=== PATIENT | female | born 1980 | race Caucasian/White ===

== ENCOUNTER 2016-06-24 09:29 | Emergency (ER) | payer BC ==
[2016-06-24 09:40] VITALS: BP 118/60
--- NOTE | 2016-06-24 09:48 | UC ---
Throat Pain/Nasal Doug HPI - HPI Summary HPI Summary: complaiont of bilateral ear pain that started approx 4 days ago mild sore throat and lymph nodes feels swollen mild nasal congestion mild headaches denies cough , fever currently breatsfeeding so only taking acetaminophen for pain with some relief - History of Current Complaint Chief Complaint: UCEar Stated Complaint: SORE THROAT AND EAR PAIN Hx Obtained From: Patient Hx Last Menstrual Period: - Allergies/Home Medications Allergies/Adverse Reactions: Allergies Allergy/AdvReac Type Severity Reaction Status Date / Time No Known Allergies Allergy Verified 01/31/16 09:13 PMH/Surg Hx/FS Hx/Imm Hx Previously Healthy: Yes - - Surgical History Surgical History: None - Family History Known Family History: Negative: Cardiac Disease, Hypertension, Diabetes - Social History Occupation: Employed Full-time Lives: With Family Alcohol Use: None Substance Use Type: None Smoking Status (MU): Never Smoked Tobacco - Immunization History Most Recent Influenza Vaccination: 03/27/15 Most Recent Tetanus Shot: 04/20/15 Most Recent Pneumonia Vaccination: none Review of Systems Constitutional: Negative Skin: Negative Eyes: Negative ENT: Sore Throat, Ear Ache Respiratory: Negative Cardiovascular: Negative Gastrointestinal: Negative Genitourinary: Negative Motor: Negative Neurovascular: Negative Musculoskeletal: Negative Neurological: Negative Psychological: Negative All Other Systems Reviewed And Are Negative: Yes Physical Exam Triage Information Reviewed: Yes Appearance: No Pain Distress, Well-Nourished Vital Signs: Initial Vital Signs Temp 98.0 F 06/24/16 09:37 Pulse 95 06/24/16 09:37 Resp 18 06/24/16 09:37 BP 118/60 06/24/16 09:37 Pulse Ox 100 06/24/16 09:37 Vital Signs Reviewed: Yes Eyes: Positive: Conjunctiva Clear ENT: Positive: Pharyngeal erythema, TM bulging. Negative: Nasal congestion, TM red Neck: Positive: No Lymphadenopathy Respiratory: Positive: Lungs clear, Normal breath sounds, No respiratory distress Cardiovascular: Positive: RRR, No Murmur, Pulses Normal Abdomen Description: Positive: Nontender, Soft Bowel Sounds: Positive: Present Musculoskeletal: Positive: No Edema Neurological: Positive: Alert Psychological Exam: Normal Skin Exam: Normal Throat Pain/Nasal Course/Dx - Course Course Of Treatment: exam completed. negative for strep throat. pt opts to use symptom management instead of flonase as she is - Differential Dx/Diagnosis Differential Diagnosis/HQI/PQRI: Pharyngitis, URI, Other - eustachion tube dysfuntion Provider Diagnoses: eustachion tube dysfuntion. pharyngitis Discharge - Discharge Plan Condition: Stable Disposition: HOME Patient Education Materials: Eustachian Tube Dysfunction (GEN), Pharyngitis (ED ) Referrals: Kylie Morse MD [Primary Care Provider] - Additional Instructions: Use nasal saline for irrigation of sinuses take acetaminophen for pain increase fluids and rest Please review your discharge instructions. If your symptoms do not improve please call your primary care provider or return to urgent care.
== END 2016-06-24 10:33 | disposition home or self-care (01) ==
LOC: UCEAST 09:29 → MERGE 09:29 → UCEAST 10:33
DX: H66.93 Otitis media, unspecified, bilateral (principal); J02.9 Acute pharyngitis, unspecified; R09.81 Nasal congestion; R51 Headache
CPT/HCPCS: 87651; 99211; G0463

== ENCOUNTER 2017-12-05 20:04 | Emergency (ER) | payer BC ==
[2017-12-05 20:14] VITALS: BP 115/69
--- NOTE | 2017-12-05 20:40 | UC ---
Ear Complaint HPI - HPI Summary HPI Summary: 5 DAYS OF RIGHT EAR PAIN AND PRESSURE. NO HEARING LOSS OR DRAINAGE FROM THE EAR. NO FEVER OR URI SYMPTOMS. REPORTS SHE BROUGHT AN OTC MOUTHGUARD BECAUSE SHE GRINDS HER TEETH AT NIGHT AND THAT THIS HAS WORN AN ULCER INTO THE BACK OF HER MOUTH. HAS BEEN HAVING SOME PAIN FROM THIS AREA AND WONDERS IF THAT IS RELATED TO HER EAR PAIN. - History of Current Complaint Chief Complaint: UCEar Stated Complaint: EAR PAIN,SORE IN MOUTH Time Seen by Provider: 12/05/17 20:17 Hx Obtained From: Patient Hx Last Menstrual Period: 11/28/17 Onset/Duration: Gradual Onset, Lasting Days, Still Present Severity Initially: Moderate Severity Currently: Moderate Pain Intensity: 7 Pain Scale Used: 0-10 Numeric Aggravating Factors: Nothing Alleviating Factors: Nothing Associated Signs/Symptoms: Negative: Discharge, Hearing Loss, URI Symptoms - Allergies/Home Medications Allergies/Adverse Reactions: Allergies Allergy/AdvReac Type Severity Reaction Status Date / Time No Known Allergies Allergy Verified 12/05/17 20:14 PMH/Surg Hx/FS Hx/Imm Hx Previously Healthy: Yes - Surgical History Surgical History: None - Family History Known Family History: Negative: Cardiac Disease, Hypertension, Diabetes - Social History Alcohol Use: Weekly Substance Use Type: None Smoking Status (MU): Never Smoked Tobacco - Immunization History Most Recent Influenza Vaccination: 03/27/15 Most Recent Tetanus Shot: 04/20/15 Most Recent Pneumonia Vaccination: none Review of Systems Constitutional: Negative ENT: Ear Ache, Other - SORE RIGHT POSTERIOR OP Respiratory: Negative Cardiovascular: Negative Gastrointestinal: Negative All Other Systems Reviewed And Are Negative: Yes Physical Exam Triage Information Reviewed: Yes Appearance: Well-Appearing, No Pain Distress, Well-Nourished Vital Signs: Initial Vital Signs Temp 98.1 F 12/05/17 20:10 Pulse 84 12/05/17 20:10 Resp 16 12/05/17 20:10 BP 115/69 12/05/17 20:10 Pulse Ox 100 12/05/17 20:10 Vital Signs Reviewed: Yes Eyes: Positive: Conjunctiva Clear ENT: Positive: Hearing grossly normal, TMs normal, Other - FLUID BEHIND RIGHT TM. SUPERFICIAL ULCERATION RIGHT POSTERIOR OP Neck: Positive: Supple, Nontender, No Lymphadenopathy Respiratory Exam: Normal Cardiovascular Exam: Normal Abdomen Description: Positive: Soft Musculoskeletal: Positive: No Edema Neurological: Positive: Alert Psychological: Positive: Age Appropriate Behavior Skin: Negative: rashes Ear Complaint Course/Dx - Differential Dx/Diagnosis Provider Diagnoses: 1. RIGHT SEROUS OTITIS. 2. MOUTH SORE Discharge - Sign-Out/Discharge Documenting (check all that apply): Discharge/Admit/Transfer - Discharge Plan Condition: Stable Disposition: HOME Prescriptions: Magic Mouth Was-AKUA/MAAL/LIDO* 5 - 10 ml SWISH SWAL QID PRN #150 ml PRN Reason: Sore Throat Triamcinolone DENTAL PASTE(NF) 1 applic MT TID PRN #1 tube PRN Reason: Pain Patient Education Materials: Canker Sores (ED), Serous Otitis Media (ED) Referrals: Kylie Morse MD [Primary Care Provider] - If Needed Additional Instructions: You have fluid behind the right eardrum but no infection. Try [id number] Sudafed decongestant to help relieve the pressure. Ibuprofen for discomfort. If your symptoms are not improving over the next week or so week follow-up. For the sore in your mouth you can try triamcinolone dental paste. Use the paste after meals and at night up to 3 times daily. Rinse your mouth with water after eating prior to application. Use a cotton swab to press a small amount of paste on the area to be treated to form a smooth film. Do not rub the paste into the area or try to spread it because it will become crumbly and gritty. IF NEEDED YOU CAN ALTERNATE WITH MAGIC MOUTHWASH WHICH YOU CAN ALSO APPLY DIRECTLY TO THE SORE AREA USING A QTIP. - Billing Disposition and Condition Condition: STABLE Disposition: Home
== END 2017-12-05 21:01 | disposition home or self-care (01) ==
LOC: UCEAST 20:04
DX: H66.91 Otitis media, unspecified, right ear (principal); K13.79 Other lesions of oral mucosa
CPT/HCPCS: 99212; G0463

== ENCOUNTER 2019-05-30 07:17 | Emergency (ER) | payer BC ==
[2019-05-30 07:30] VITALS: BP 98/53
[2019-05-30] MEDS ORDERED: Ibuprofen TAB* 600 MG PO ONE (07:42)
--- NOTE | 2019-05-30 07:44 | UC ---
Throat Pain/Nasal Doug HPI - HPI Summary HPI Summary: 38-year-old woman comes in with a chief complaint of 3-4 days of upper respiratory tract infection symptoms. Started with a diffuse generalized headache and ear pressure bilaterally. In the last day it's become a sore throat. Overnight patient feels like her throat is swollen. No difficulty with breathing. It does hurt to swallow. She's taking acetaminophen which does help with the headache. No fevers measured. - History of Current Complaint Chief Complaint: UCGeneralIllness Stated Complaint: EAR PAIN SORE THROAT HEADACHE Time Seen by Provider: 05/30/19 07:32 Hx Last Menstrual Period: 05/09/19 Pain Intensity: 6 - Allergies/Home Medications Allergies/Adverse Reactions: Allergies Allergy/AdvReac Type Severity Reaction Status Date / Time No Known Allergies Allergy Verified 05/30/19 07:30 PMH/Surg Hx/FS Hx/Imm Hx Previously Healthy: Yes - Surgical History Surgical History: None - Family History Known Family History: Negative: Cardiac Disease, Hypertension, Diabetes - Social History Alcohol Use: Occasionally Substance Use Type: None Smoking Status (MU): Never Smoked Tobacco - Immunization History Most Recent Influenza Vaccination: 03/27/15 Most Recent Tetanus Shot: 04/20/15 Most Recent Pneumonia Vaccination: none Review of Systems All Other Systems Reviewed And Are Negative: Yes Constitutional: Positive: Other - see hpi Skin: Positive: Negative Eyes: Positive: Negative ENT: Positive: Sore Throat, Ear Ache, Nasal Discharge - minimal Respiratory: Positive: Negative Cardiovascular: Positive: Negative Gastrointestinal: Positive: Negative Motor: Positive: Negative Neurovascular: Positive: Negative Musculoskeletal: Positive: Negative Neurological: Positive: Headache Psychological: Positive: Negative Is Patient Immunocompromised?: No Physical Exam Triage Information Reviewed: Yes Appearance: No Pain Distress, Well-Nourished, Ill-Appearing - mild Vital Signs: Initial Vital Signs Temp 98.1 F 05/30/19 07:25 Pulse 91 05/30/19 07:25 Resp 17 05/30/19 07:25 BP 98/53 05/30/19 07:25 Pulse Ox 96 05/30/19 07:25 Vital Signs Reviewed: Yes Eye Exam: Normal Eyes: Positive: Conjunctiva Clear ENT: Positive: Pharyngeal erythema, Tonsillar swelling - 1+ b/l. Oral pharynx open. Speech normal., Tonsillar exudate, Uvula midline, Other - There is some cerumen in the right ear canal. Right TM is visible and there is no erythema. Left ear canal has cerumen impaction. Neck: Positive: Supple Respiratory: Positive: Lungs clear, Normal breath sounds, No respiratory distress Cardiovascular: Positive: RRR Musculoskeletal: Positive: Strength Intact, ROM Intact Neurological: Positive: Alert, Muscle Tone Normal Psychological: Positive: Age Appropriate Behavior Skin Exam: Normal Throat Pain/Nasal Course/Dx - Course Course Of Treatment: Patient's hearing is improved after cerumen irrigated by nursing and cerumen removed. We'll treat for strep throat. Patient she get reevaluated if not completely improved or is worsening. - Differential Dx/Diagnosis Provider Diagnosis: Impacted cerumen of left ear, Strep pharyngitis Discharge ED - Sign-Out/Discharge Documenting (check all that apply): Patient Departure All imaging exams completed and their final reports reviewed: No Studies - Discharge Plan Condition: Stable Disposition: HOME Prescriptions: Amoxicillin PO (*) [Amoxicillin 875 MG (*)] 875 mg PO BID #20 tab Patient Education Materials: Cerumen Impaction (ED), Strep Throat (ED) Referrals: Kylie Mores MD [Primary Care Provider] - Additional Instructions: FOLLOW UP WITH YOUR DOCTOR IF NOT COMPLETELY IMPROVED. GET REEVALUATED SOONER IF NOT IMPROVED OR WORSE OR ANY QUESTIONS OR CONCERNS. - Billing Disposition and Condition Condition: STABLE Disposition: Home
== END 2019-05-30 08:17 | disposition home or self-care (01) ==
LOC: UCEAST 07:17
DX: J02.0 Streptococcal pharyngitis (principal); H61.22 Impacted cerumen, left ear; R51 Headache
CPT/HCPCS: 87651; 99213; A9270-GY; G0463